=== PATIENT | female | born 1995 | race African-American/Black ===

== ENCOUNTER 2024-01-29 10:41 | Emergency (ER) | payer MEDICAID ==
[~2024-01-29] VITALS: Ht 170.2 cm; Wt 90.7 kg
[~2024-01-29 10:41] MED LIST: REGLAN10 MG PO
[2024-01-29] MEDS ORDERED: SODIUM CHLORIDE 0.9% 1,000 ML IV ONE (11:05)
[2024-01-29 11:18] LABS: BASO% 0.4 % (0-3); EOS% 0.7 % (0-8); HEMATOCRIT 39.9 % (37.0-47.0); HEMOGLOBIN 12.5 g/dl (12.0-16.0); IMMATURE GRANULOCYTES 0.4 % (0.0-5.0); LYMPH% 40.4 % (15-41); MEAN CELL VOLUME 91.3 fL CALC (80.0-100.0); MEAN CORPUSCULAR HGB 28.6 pG CALC (26.0-32.0); MEAN CORPUSCULAR HGB CONC 31.3 g/dL CAL (32.0-36.0); MONO% 7.1 % (2-13); NEUT# 2.81 thou/uL (2.00-7.15); RED BLOOD COUNT 4.37 mill/uL (4.20-5.60); RED CELL DISTRI WIDTH 14.9 % (11.5-15.5)
[2024-01-29 11:22] VITALS: BP 114/82
[2024-01-29 11:22] LABS: URINE BILIRUBIN - DIPSTICK Negative (NEGATIVE); URINE BLOOD DIPSTICK Negative (NEGATIVE); URINE GLUCOSE - DIPSTICK Negative (NEGATIVE); URINE KETONE Negative (NEGATIVE); URINE LEUK ESTERASE Negative (NEGATIVE); URINE NITRITE - DIPSTICK Negative (Negative); URINE PROTEIN - DIPSTICK 100 mg/dL (NEG-TRACE); URINE UROBILINOGEN - DIPSTICK 0.2 E.U./dL (0.2)
[2024-01-29 11:25] LABS: ALBUMIN 3.9 g/dL (3.2-5.0); CREATININE 0.6 mg/dL (0.5-1.0); POTASSIUM 4.2 mmol/l (3.5-5.1); TOTAL PROTEIN 7.6 g/dL (6.3-8.2)
[2024-01-29 11:26] LABS: BILIRUBIN, TOTAL 0.6 mg/dL (0.02-1.3)
[2024-01-29 11:27] LABS: URINE COLOR Yellow
[2024-01-29 11:28] LABS: URINE EPITHELIAL CELLS MODERATE EPI/hpf (0-FEW)
[2024-01-29 11:30] VITALS: BP 132/93
[2024-01-29 11:48] VITALS: BP 115/71
[2024-01-29 12:00] VITALS: BP 121/75
[2024-01-29 12:16] VITALS: BP 107/74
== END 2024-01-29 12:33 ==
LOC: ED 10:41
PROVIDERS: Family Medicine
DX: O60.03 Preterm labor without delivery, third trimester (principal); Z3A.38 38 weeks gestation of pregnancy